=== PATIENT | female | born 1995 ===

== ENCOUNTER → 2020-06-29 | Outpatient (CLI) | payer MEDICAID ==
[~2020-06-29] VITALS: Ht 165.1 cm; Wt 102.1 kg
[2020-06-29 14:17] VITALS: BP 138/70
--- NOTE | 2020-06-29 14:33 | General Progress Note ---
Subjective ROS Limited/Unobtainable: Yes Allergies: Coded Allergies: No Known Allergies (Unverified , 06/29/20) Objective Last 24 Hour Vital Signs Date Time Temp Pulse Resp B/P (MAP) Pulse Ox O2 Delivery O2 Flow Rate FiO2 06/29/20 14:17 97.3 72 16 138/70 99 General Appearance: no apparent distress EENT: normal ENT inspection Neck: supple Cardiovascular: normal rate Respiratory/Chest: decreased breath sounds Abdomen: normal bowel sounds, non tender, soft Extremities: non-tender Assessment/Plan Assessment/Plan: s/p cholecystectomy MRCP reviewed no biliary stent Tee Morales MD Jun 29, 2020 14:33
== END | disposition home or self-care (01) ==
LOC: PAN 13:37
DX: Z98.890 Other specified postprocedural states (principal); Z90.49 Acquired absence of other specified parts of digestive tract